=== PATIENT | female | born 1970 | race Caucasian/White ===

== ENCOUNTER 2018-04-25 23:43 | Emergency (ER) | payer MEDICAID, OTHER ==
[~2018-04-25] VITALS: Ht 160 cm; Wt 88.5 kg
[2018-04-26 00:17] VITALS: Ht 160 cm; Wt 88.5 kg
[2018-04-26] MEDS ORDERED: LORAZEPAM 2 MG INJ IV ONE (01:00)
[2018-04-26] MEDS ORDERED: IBUP-1542 PO (03:10)
[2018-04-26] MEDS ORDERED: LORA-441 PO (03:10)
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
[2018-04-26 03:34] VITALS: BP 120/81; PULSE 71; RESP 21
== END 2018-04-26 03:37 | disposition home or self-care (01) ==
LOC: E/R 23:43
DX: F41.9 Anxiety disorder, unspecified (principal); E11.9 Type 2 diabetes mellitus without complications
CPT/HCPCS: 36415; 71045; 80053; 83880; 84484; 85025; 93005; 96374; J2060; Z7502